=== PATIENT | female | born 1970 | race Caucasian/White ===

== ENCOUNTER 2024-06-05 06:16 | Day surgery (SDC) | payer BC, SELFPAY ==
[2024-06-05 09:43] VITALS: BMI 33.2
[2024-06-05 09:44] VITALS: BMI 33.2
[2024-06-05 09:46] VITALS: BP 115/71
[2024-06-05 10:00] LABS: Glucose - Point of Care 95 mg/dl (70-99)
[2024-06-05 12:35] VITALS: BP 107/75
[2024-06-05 12:42] LABS: Glucose - Point of Care 82 mg/dl (70-99)
[2024-06-05 12:45] VITALS: BP 118/97
[2024-06-05 13:00] VITALS: BP 106/73
== END 2024-06-05 13:30 | disposition home or self-care (01) ==
LOC: SDS 06:16
PROVIDERS: ATTENDING PHYSICIAN Internal Medicine Gastroenterology
DX: R89.6 Abnormal cytological findings in specimens from other organs, systems and tissues (principal); K83.8 Other specified diseases of biliary tract; R59.0 Localized enlarged lymph nodes; Z87.19 Personal history of other diseases of the digestive system
CPT/HCPCS: 43242; 88172; 88173; 88305; 82962; 88341; 88342

== ENCOUNTER → 2024-06-17 07:56 | Outpatient (REF) | payer BC, SELFPAY | LOC: HWEVLT 07:56 | PROVIDERS: ATTENDING PHYSICIAN Radiology Diagnostic Radiology | DX: I83.892 Varicose veins of left lower extremity with other complications (principal) | CPT/HCPCS: 93970 ==

== ENCOUNTER → 2024-08-15 10:53 | Outpatient (REF) | payer BC, SELFPAY | LOC: PAVMRI 10:53 | PROVIDERS: ATTENDING PHYSICIAN Internal Medicine | DX: R59.9 Enlarged lymph nodes, unspecified (principal) | CPT/HCPCS: 74183; A9575 ==